=== PATIENT | male | born 1975 | race Caucasian/White ===

== ENCOUNTER 2021-04-26 08:39 | Inpatient (IN) | payer BC ==
[2021-04-26] MEDS ORDERED: MVI, Adult with Vitamin K 10 ML, Thiamine 100 MG, Folic Acid 1 MG, Magnesium Sulfate 2 ... IV ONE ×5 (09:31)
[2021-04-26] MEDS ORDERED: Sodium Chloride 0.9% 10 ML Syringe FLUSH PRN (09:31)
[2021-04-26] MEDS ORDERED: LORazepam 2 MG/ML SDV IVPUSH ONE ×2 (09:32→10:47)
[2021-04-26] MEDS ORDERED: Potassium Chloride 20 MEQ in Premix Bag 1 BAG IV ONE ×3 (10:39→16:42)
[2021-04-26] MEDS: Potassium Chloride 20 MEQ Tab.ER PO ONE ×2 (11:09→11:16)
[2021-04-26] MEDS: LORazepam 2 MG/ML SDV IV SCH ×4 (13:39→23:27)
[2021-04-26] MEDS: LORazepam 2 MG/ML SDV ONE ×2 (13:39→13:47)
[2021-04-26] MEDS ORDERED: Acetaminophen 325 MG Tab PO PRN (13:43)
[2021-04-26] MEDS ORDERED: Haloperidol Lactate 5 MG/ML SDV IVPUSH PRN (13:43)
[2021-04-26] MEDS ORDERED: LORazepam 2 MG/ML SDV IVPUSH PRN (13:43)
[2021-04-26] MEDS ORDERED: Ondansetron 4 MG/2 ML SDV IV PRN (13:43)
[2021-04-26] MEDS ORDERED: Ondansetron 4 MG Tab.DIS PO PRN (13:43)
[2021-04-26] MEDS ORDERED: Magnesium Hydroxide 400 MG/5 ML Susp 30 ML Cup PO PRN (13:43)
[2021-04-26] MEDS: NS + KCl 20mEq/L 1,000 ML IV SCH (14:00)
[2021-04-26] MEDS ORDERED: Potassium Chloride 20 MEQ, Lidocaine 1% 2 ML in Sodium Chloride 0.9% 100 ML IV ONE (14:15)
[2021-04-26] MEDS: Nicotine 14 MG/24 Hr Patch TRDERM SCH (14:20)
[2021-04-26] MEDS: Gabapentin 400 MG Cap PO SCH ×2 (14:25→21:07)
[2021-04-26] MEDS ORDERED: Lidocaine 1% 50 ML MDV ONE (17:39)
[2021-04-26] MEDS: Potassium Chloride 20 MEQ, Lidocaine 1% 2 ML in Sodium Chloride 0.9% 100 ML IV SCH ×2 (17:48→19:39)
[2021-04-26] MEDS: Melatonin 3 MG Tab PO SCH (21:07)
[2021-04-27] MEDS: NS + KCl 20mEq/L 1,000 ML IV SCH (03:16)
[2021-04-27] MEDS: LORazepam 1 MG Tab PO SCH ×7 (04:07→22:52)
[2021-04-27] MEDS ORDERED: Potassium Chloride 20 MEQ Tab.ER PO ONE (08:40)
[2021-04-27] MEDS: Pantoprazole 40 MG Tab.CR PO SCH (09:12)
[2021-04-27] MEDS: Thiamine 100 MG Tab PO SCH (09:15)
[2021-04-27] MEDS: Folic Acid 1 MG Tab PO SCH (09:15)
[2021-04-27] MEDS: Gabapentin 400 MG Cap PO SCH ×3 (09:15→21:03)
[2021-04-27] MEDS: Nicotine 14 MG/24 Hr Patch TRDERM SCH (09:16)
[2021-04-27] MEDS: Melatonin 3 MG Tab PO SCH (21:02)
[2021-04-28] MEDS: Pantoprazole 40 MG Tab.CR PO SCH (08:03)
[2021-04-28] MEDS: Folic Acid 1 MG Tab PO SCH (08:03)
[2021-04-28] MEDS: Thiamine 100 MG Tab PO SCH (08:03)
[2021-04-28] MEDS: Gabapentin 400 MG Cap PO SCH ×4 (08:03→20:01)
[2021-04-28] MEDS: Nicotine 14 MG/24 Hr Patch TRDERM SCH (08:04)
[2021-04-28] MEDS ORDERED: Potassium Chloride 20 MEQ Tab.ER PO ONE (08:30)
[2021-04-28] MEDS: Melatonin 3 MG Tab PO SCH ×2 (19:16→20:00)
[2021-04-29] MEDS: Pantoprazole 40 MG Tab.CR PO SCH ×2 (06:18→07:24)
[2021-04-29] MEDS: Nicotine 14 MG/24 Hr Patch TRDERM SCH (08:42)
[2021-04-29] MEDS: Gabapentin 400 MG Cap PO SCH (08:42)
[2021-04-29] MEDS: Thiamine 100 MG Tab PO SCH (08:42)
[2021-04-29] MEDS: Folic Acid 1 MG Tab PO SCH (08:42)
== END 2021-04-29 13:01 | disposition home or self-care (01) | DRG 775 ==
LOC: JP.ED 08:39 → JP.ICU 11:07
PROVIDERS: ADMIT Internal Medicine; ATTEND Hospitalist
DX: F10.231 Alcohol dependence with withdrawal delirium (principal); E87.6 Hypokalemia; Z86.16 Personal history of COVID-19; H54.7 Unspecified visual loss; Z90.89 Acquired absence of other organs; F17.220 Nicotine dependence, chewing tobacco, uncomplicated
CPT/HCPCS: 36415; 80048; 80053; 80305-QW; 80307; 82550; 83605; 83735; 84132; 85025; 85610; 96365; 96375; 96376; 99284; 99285-25; A9270-GY; J2060; J3411; J3475; J3480; J3490; J7030